=== PATIENT | female | born 1995 ===

== ENCOUNTER 2025-03-11 20:41 | Inpatient (IN) | payer OTHER ==
[~2025-03-11] VITALS: Ht 160 cm; Wt 55.0 kg
[2025-03-11] MEDS ORDERED: FentaNYL Citrate 50 MCG/ML 2 ML Injection IV PRN (21:00)
[2025-03-11 21:17] LABS: BASOPHILS ABSOLUTE AUTO 0.04 K/mm3 (0.00-0.23); BASOPHILS PERCENT AUTO 0 % (0-2); EOSINOPHILS ABSOLUTE AUTO 0.01 K/mm3 (0.00-0.68); EOSINOPHILS PERCENT AUTO 0 % (0-6); Hematocrit 38.0 % (33.0-51.0); Hemoglobin 12.3 g/dL (11.5-16.0); IMMATURE GRAN ABSOLUTE AUTO 0.10 K/mm3 (0.00-0.10); IMMATURE GRAN PERCENT AUTO 1 % (0-1); LYMPHOCYTES ABSOLUTE AUTO 1.07 K/mm3 (0.84-5.20); LYMPHOCYTES PERCENT AUTO 5 % (21-46); MONOCYTES ABSOLUTE AUTO 1.23 K/mm3 (0.16-1.47); MONOCYTES PERCENT AUTO 6 % (4-13); Mean Corpuscular HGB Conc 32.4 g/dL (31.5-36.5); Mean Corpuscular Volume 83 fL (80-100); NEUTROPHILS ABSOLUTE AUTO 17.97 K/mm3 (1.96-9.15); NEUTROPHILS PERCENT AUTO 88 % (41-73); NRBC ABSOLUTE 0.00 K/mm3 (0.00-0.02); NRBC Auto 0.0 /100 WBC (0.0-0.2); RDW Coefficient Variation 14.2 % (11.7-14.2); RDW Standard Deviation 42.8 fL (35.1-46.3)
[2025-03-11 21:41] LABS: Source, Urine Clean Catch
[2025-03-11 21:47] LABS: Platelet Count 290 K/mm3 (150-400)
[2025-03-11 22:03] LABS: Bilirubin, Urine Neg (Neg); Glucose Qualitative, Urine Neg (Neg); Ketones, Urine Neg (Neg); Leukocyte Esterase, Urine Neg (Neg); Protein, Urine 1+ (Neg); Specific Gravity, Urine 1.010 (1.003-1.022); Urobilinogen, Urine NORM (Normal)
[2025-03-11 22:12] LABS: Color, Urine Yellow (P-Yellow)
[2025-03-11 22:13] LABS: Red Blood Cells, Urine 0-2 /hpf (0-2); White Blood Cells, Urine 0-2 /hpf (0-5)
[2025-03-11 22:15] LABS: Alanine Aminotransfer (ALT/SGP 26 U/L (12-78); Albumin, Blood 3.7 g/dL (3.4-5.0); Albumin/Globulin Ratio 1.1 (0.8-1.8); Anion Gap 10 mmol/L (3-11); Aspartate Aminotrans (AST/SGOT 30 U/L (12-37); Bilirubin, Total 0.2 mg/dL (0.1-1.0); Blood Urea Nitrogen 12 mg/dL (8-24); CO2, Blood 22 mmol/L (21-32); Calcium, Blood 8.9 mg/dL (8.5-10.1); Chloride, Blood 107 mmol/L (98-108); Creatinine, Blood 0.55 mg/dL (0.40-1.00); Ethanol (Alcohol), Blood, Med <3 mg/dL; Globulin, Blood 3.4 g/dL (2.2-4.0); Glucose, Blood 105 mg/dL (70-99); Potassium, Blood 4.4 mmol/L (3.5-5.5); Sodium, Blood 135 mmol/L (136-145); Total Protein, Blood 7.1 g/dL (6.4-8.2)
[2025-03-11] MEDS ORDERED: NS 1,000 ML IV SCH (22:25)
[2025-03-11] MEDS ORDERED: Ondansetron HCl 2 MG / ML 2ML Vial IV ONE (23:00)
[2025-03-11 23:38] VITALS: BP 109/69
[2025-03-12] MEDS ORDERED: IRON18 M1 PO (00:05)
[2025-03-12] MEDS ORDERED: Ondansetron HCl 2 MG / ML 2ML Vial IV PRN (00:50)
[2025-03-12] MEDS ORDERED: HYDROcodone 5-APAP 325 TAB PO PRN (00:50)
[2025-03-12] MEDS ORDERED: FentaNYL Citrate 50 MCG/ML 2 ML Injection IV PRN (00:50)
[2025-03-12 02:12] LABS: Hematocrit 34.9 % (33.0-51.0); Hemoglobin 11.4 g/dL (11.5-16.0)
--- NOTE | 2025-03-12 02:58 | NUR ---
PT CONTINUES TO C/O PAIN AT ABDOMEN. RN AND RETAIL MARKETING MANAGER HAVE DISCUSSED PAIN AND SYMPTOMS TO BE EXPECTED. HEATING PAD PROVIDED.
[2025-03-12 04:11] VITALS: BP 102/55
--- NOTE | 2025-03-12 04:11 | NUR ---
RN TO ROOM; PT WITH CONTINUED C/O PAIN. RN PALPATED PT ABDOMEN AND IT REMAINS TENDER BUT NO INCREASED FIRMNESS. HEATING PAD PLACED BACK ON ABDOMEN PER PT REQUEST.
--- NOTE | 2025-03-12 04:44 | NUR ---
CONTINOUS PULSE OX PLACED ON PT PER PROTOCOL
[2025-03-12] MEDS ORDERED: Ketorolac Tromethamine 15mg Vial IV ONE (05:10)
--- NOTE | 2025-03-12 05:12 | NUR ---
0505 PT REQUESTS MORE PAIN MEDICATIONS AND SLEEP MEDICATION. RN CALL TO DR MULLINS. RN RELAYED TO DR MULLINS PT REQUEST AND THAT PATIENT DOES FALL ASLEEP WHILE GETTING FENTANYL AND FOR A BRIEF TIME AFTERWARD. PROVIDER ORDERS GIVEN FOR IV TORADOL X1 AND ADDITIONAL LAB WORK. NO ORDERS FOR SLEEP MEDICATION AT THIS TIME.
[2025-03-12 06:48] LABS: BASOPHILS ABSOLUTE AUTO 0.02 K/mm3 (0.00-0.23); BASOPHILS PERCENT AUTO 0 % (0-2); EOSINOPHILS ABSOLUTE AUTO 0.00 K/mm3 (0.00-0.68); EOSINOPHILS PERCENT AUTO 0 % (0-6); Hematocrit 32.9 % (33.0-51.0); Hemoglobin 10.5 g/dL (11.5-16.0); IMMATURE GRAN ABSOLUTE AUTO 0.05 K/mm3 (0.00-0.10); IMMATURE GRAN PERCENT AUTO 0 % (0-1); LYMPHOCYTES ABSOLUTE AUTO 1.04 K/mm3 (0.84-5.20); LYMPHOCYTES PERCENT AUTO 8 % (21-46); MONOCYTES ABSOLUTE AUTO 0.95 K/mm3 (0.16-1.47); MONOCYTES PERCENT AUTO 7 % (4-13); Mean Corpuscular HGB Conc 31.9 g/dL (31.5-36.5); Mean Corpuscular Volume 84 fL (80-100); NEUTROPHILS ABSOLUTE AUTO 11.15 K/mm3 (1.96-9.15); NEUTROPHILS PERCENT AUTO 84 % (41-73); NRBC ABSOLUTE 0.00 K/mm3 (0.00-0.02); NRBC Auto 0.0 /100 WBC (0.0-0.2); Platelet Count 283 K/mm3 (150-400); RDW Coefficient Variation 14.2 % (11.7-14.2); RDW Standard Deviation 43.8 fL (35.1-46.3)
[2025-03-12 07:14] LABS: Anion Gap 10.0 mmol/L (3-11); Blood Urea Nitrogen 12.0 mg/dL (8-24); CO2, Blood 24.0 mmol/L (21-32); Calcium, Blood 8.3 mg/dL (8.5-10.1); Chloride, Blood 105.0 mmol/L (98-108); Creatinine, Blood 0.52 mg/dL (0.40-1.00); Glucose, Blood 127.0 mg/dL (70-99); Potassium, Blood 3.9 mmol/L (3.5-5.5); Sodium, Blood 135.0 mmol/L (136-145)
[2025-03-12 07:17] VITALS: BP 100/53
--- NOTE | 2025-03-12 07:27 | NUR ---
SHIFT SUMMARY PT WITH SEVERE PAIN DURING SHIFT; PROVIDER NOTIFIED (SEE NOTES). PT FRIEND TOOK WALLET AND PASSPORT HOME WITH HER. PT REPORTS RELIEF WITH TORADOL. PT REFUSED LFA DRESSING AND BLANKET EXCHANGE SHE WANTED TO REST.
--- NOTE | 2025-03-12 08:00 | NUR ---
03/11/25 2335 PT ARRIVES TO FLOOR FROM ED VIA GURNEY; PT UNABLE TO STAND AT THIS TIME DUE TO PAIN. PT TRANSFERRED TO BED WITH SLIDE SHEET AND STAFF ASSISTANCE. PT FRIEND AT BEDSIDE AND BOTH ORIENTED TO ROOM.
[2025-03-12] MEDS ORDERED: HYDROmorphone HCl/Pf 1MG SYR IV PRN (09:30)
[2025-03-12] MEDS ORDERED: Naloxone HCl 1MG / ML 2ML SYR IV PRN (11:35)
[2025-03-12 12:44] LABS: Hematocrit 32.7 % (33.0-51.0); Hemoglobin 10.7 g/dL (11.5-16.0)
[2025-03-12 12:56] VITALS: BP 109/59
[2025-03-12 15:05] VITALS: BP 115/61
--- NOTE | 2025-03-12 16:13 | NUR ---
NOTIFIED DR. MULLINS OF BLADDER SCAN OF 104 AFTER PT HAS NOT VOIDED DURING SHIFT. ORDERS RECIEVED FOR 500ML BOLUS. ENCOURAGING PATIENT TO CONTINUE DRINKING FLUIDS.
--- NOTE | 2025-03-12 16:20 | NUR ---
spoke with dr. stinson again, no bolus to be given at this time.
--- NOTE | 2025-03-12 16:48 | NUR ---
SHIFT SUMMARY PT REMAINS VERY PAINFUL THROUGHOUT SHIFT. TOLERATING LIQUIDS WELL. NO APPETITE. ENCOURAGED PATIENT TO USE INCENTIVE SPIROMETER, SHE WILL USE WHEN REMINDED. ENCOURAGING PATIENT TO AMBULATE AND PT DECLINES TO GET OOB AT THIS TIME. HGB REMAINS STABLE DURING SHIFT. PLAN FOR REPEAT CHECK AROUND 1800. FRIENDS AT BEDSIDE T/O SHIFT. PT CALLING APPROPRIATLY. FALLS ASLEEP QUICKLY.
[2025-03-12 19:06] LABS: Hematocrit 34.4 % (33.0-51.0); Hemoglobin 11.0 g/dL (11.5-16.0)
[2025-03-12 19:14] VITALS: BP 125/65
[2025-03-12 23:38] VITALS: BP 110/68
[2025-03-13 00:15] LABS: Hematocrit 32.5 % (33.0-51.0); Hemoglobin 10.4 g/dL (11.5-16.0)
[2025-03-13 03:47] VITALS: BP 125/70
--- NOTE | 2025-03-13 05:42 | NUR ---
NOC SUMMARY- PT PAIN MANAGED. PT HAS UNREALISTIC EXPECTATIONS WITH PAIN MANAGEMENT. PT IS REPORTING CONSTIPATION DISCOMFORT. WILL DISCUSS WITH DAY RN ABOUT ASKING FOR BOWEL CARE. PT HAS BEEN TAKING IN VERY LITTLE PO FLUIDS. PT DID AMBULATE TO RESTROOM TO VOID. PT DENIES PASSING FLATUS. PT ENCOURAGED TO WALK. CALL LIGHT IN REACH.
[2025-03-13 06:40] LABS: BASOPHILS ABSOLUTE AUTO 0.05 K/mm3 (0.00-0.23); BASOPHILS PERCENT AUTO 0 % (0-2); Hematocrit 36.4 % (33.0-51.0); Hemoglobin 11.8 g/dL (11.5-16.0); LYMPHOCYTES ABSOLUTE AUTO 0.68 K/mm3 (0.84-5.20); LYMPHOCYTES PERCENT AUTO 5 % (21-46); MONOCYTES ABSOLUTE AUTO 0.79 K/mm3 (0.16-1.47); MONOCYTES PERCENT AUTO 5 % (4-13); Mean Corpuscular HGB Conc 32.4 g/dL (31.5-36.5); Mean Corpuscular Volume 84 fL (80-100); NRBC ABSOLUTE 0.00 K/mm3 (0.00-0.02); NRBC Auto 0.0 /100 WBC (0.0-0.2); Platelet Count 285 K/mm3 (150-400); RDW Coefficient Variation 14.0 % (11.7-14.2); RDW Standard Deviation 43.3 fL (35.1-46.3)
[2025-03-13 06:41] LABS: EOSINOPHILS ABSOLUTE AUTO 0.01 K/mm3 (0.00-0.68); EOSINOPHILS PERCENT AUTO 0 % (0-6); IMMATURE GRAN ABSOLUTE AUTO 0.05 K/mm3 (0.00-0.10); IMMATURE GRAN PERCENT AUTO 0 % (0-1); NEUTROPHILS ABSOLUTE AUTO 13.08 K/mm3 (1.96-9.15); NEUTROPHILS PERCENT AUTO 89 % (41-73)
[2025-03-13 06:57] LABS: Anion Gap 10.0 mmol/L (3-11); Blood Urea Nitrogen 12.0 mg/dL (8-24); CO2, Blood 26.0 mmol/L (21-32); Calcium, Blood 8.0 mg/dL (8.5-10.1); Chloride, Blood 98.0 mmol/L (98-108); Creatinine, Blood 0.56 mg/dL (0.40-1.00); Glucose, Blood 109.0 mg/dL (70-99); Potassium, Blood 4.1 mmol/L (3.5-5.5); Sodium, Blood 130.0 mmol/L (136-145)
[2025-03-13] MEDS ORDERED: Magnesium Hydroxide Conc 10 ML UDC PO PRN (07:05)
[2025-03-13 07:08] LABS: BAND PERCENT MAN 27 % (0-8); BASOPHILS ABSOLUTE MAN 0.00 K/mm3 (0.00-0.23); BASOPHILS PERCENT MAN 0 % (0-2); EOSINOPHILS ABSOLUTE MAN 0.00 K/mm3 (0.00-0.68); EOSINOPHILS PERCENT MAN 0 % (0-6); LYMPHOCYTES ABSOLUTE MAN 0.58 K/mm3 (0.84-5.20); LYMPHOCYTES PERCENT MAN 4 % (21-46); MONOCYTES ABSOLUTE MAN 0.87 K/mm3 (0.16-1.47); MONOCYTES PERCENT MAN 6 % (4-13); NEUTROPHILS ABSOLUTE MAN 13.19 K/mm3 (1.96-9.15); SEG NEUTROPHILS PERCENT MAN 63 % (41-73)
[2025-03-13 07:35] VITALS: BP 122/87
[2025-03-13] MEDS ORDERED: HYDROmorphone HCl/Pf 1MG SYR IV PRN (10:40)
[2025-03-13] MEDS ORDERED: Metoclopramide HCl 5MG / ML 2ML Vial IV PRN (10:40)
[2025-03-13 15:30] VITALS: BP 117/79
--- NOTE | 2025-03-13 18:33 | NUR ---
SHIFT SUMMARY: PT APPEARS TO SLEEP OFTEN, ORIENTED x4, ABLE TO MAKE NEEDS KNOWN, FREQUENTLY REQUESTING PAIN MEDICATION. PT ENCOURAGED TO GET OOB AND INCREASE ACTIVITY LEVEL TODAY, BUT REFUSES TO SIT IN CHAIR, REFUSES BEDBATH, DOES AMBULATE x2 TO RESTROOM TO URINATE, NO BM THIS SHIFT BUT BOWEL CARE REGIMEN WAS INITIATED PER ORDERS. ABDOMEN TENDER TO PALPATION. PT ENCOURAGED TO INCREASE PO INTAKE, MINIMAL INTAKE THIS SHIFT, EMESIS x1 THIS AM. PT's FRIENDS TO BEDSIDE TODAY, UPDATED ON PT STATUS. THEY ARE HOPING TO TAKE PT HOME TOMORROW, BUT PT IS NOT PARTICIPATING MUCH IN HER CARE WHICH IS CONCERNING. AT THIS TIME, PT IS RESTING QUIETLY IN BED W/CALL LIGHT IN REACH.
[2025-03-13 20:53] VITALS: BP 110/66
[2025-03-13 21:25] VITALS: BP 112/69
[2025-03-13 21:59] VITALS: BP 109/67
--- NOTE | 2025-03-13 22:46 | NUR ---
PTS VIEW SCORE HAS BEEN 4. PT HAS BEEN TACHY AND HAS LOW GRADE TEMP AND TACHYPNEA. SEE FOLLOW UP VS. PTS PRIMARY AND FRONT LOADER RESIDENTIAL DRIVER AWARE OF VS AND VERB OK TO TRANSITION PT BACK TO ROUTINE VS PER ORDERS.
[2025-03-14] VITALS (13 sets, daily range): BP systolic 112–129; BP diastolic 71–92
[2025-03-14 04:51] LABS: Hematocrit 34.2 % (33.0-51.0); Hemoglobin 10.9 g/dL (11.5-16.0); Mean Corpuscular HGB Conc 31.9 g/dL (31.5-36.5); Mean Corpuscular Volume 82 fL (80-100); NRBC ABSOLUTE 0.00 K/mm3 (0.00-0.02); NRBC Auto 0.0 /100 WBC (0.0-0.2); Platelet Count 263 K/mm3 (150-400); RDW Coefficient Variation 13.8 % (11.7-14.2); RDW Standard Deviation 41.2 fL (35.1-46.3)
[2025-03-14 05:17] LABS: BAND PERCENT MAN 24 % (0-8); BASOPHILS ABSOLUTE MAN 0.00 K/mm3 (0.00-0.23); BASOPHILS PERCENT MAN 0 % (0-2); EOSINOPHILS ABSOLUTE MAN 0.00 K/mm3 (0.00-0.68); EOSINOPHILS PERCENT MAN 0 % (0-6); LYMPHOCYTES ABSOLUTE MAN 0.42 K/mm3 (0.84-5.20); LYMPHOCYTES PERCENT MAN 3 % (21-46); MONOCYTES ABSOLUTE MAN 0.14 K/mm3 (0.16-1.47); MONOCYTES PERCENT MAN 1 % (4-13); NEUTROPHILS ABSOLUTE MAN 13.64 K/mm3 (1.96-9.15); SEG NEUTROPHILS PERCENT MAN 72 % (41-73)
[2025-03-14 05:26] LABS: Anion Gap 9.0 mmol/L (3-11); Blood Urea Nitrogen 9.0 mg/dL (8-24); CO2, Blood 24.0 mmol/L (21-32); Calcium, Blood 7.8 mg/dL (8.5-10.1); Chloride, Blood 97.0 mmol/L (98-108); Creatinine, Blood 0.45 mg/dL (0.40-1.00); Glucose, Blood 109.0 mg/dL (70-99); Potassium, Blood 4.0 mmol/L (3.5-5.5); Sodium, Blood 126.0 mmol/L (136-145)
--- NOTE | 2025-03-14 08:11 | NUR ---
PT ALERT AND ORIENTED X4. VITALS WNL. SPIKED A LOW GRAGE FEVER. HAS BEEN MEDICATED THROUGH THE NIGHT FOR RLQ PAIN. PT NEEDS ENCOURAGEMENT AND REFINFORCMENT TO AMBULATE AND USE IS. PT EDUCATED ON THE BENEFITS AND VERBALLY STATES UNDERSTANDING. PT HAD AN EPISODE OF INCONTINENCY. AMBULATED TO THE BATHROOM ONCE WITH NURSE ASSIST. CALL LOMELI WITHIN REACH.
[2025-03-14] MEDS ORDERED: Piperacillin/Tazobactam Sod 3.375 GM in NS 100 ML IV SCH (11:00)
--- NOTE | 2025-03-14 11:00 | NUR ---
PT TRANSPORTED TO PRE-OP VIA [facility]. FAMILY AT BEDSIDE.
[2025-03-14] MEDS ORDERED: FentaNYL Citrate 50 MCG/ML 5 ML Injection ONE (11:11)
[2025-03-14] MEDS ORDERED: Midazolam HCl 1MG / ML 2ML Vial ONE (11:11)
[2025-03-14] MEDS ORDERED: NS 500 ML IV SCH (11:15)
[2025-03-14] MEDS ORDERED: Ropivacaine 0.5% HCL/PF 5 MG/ML 30ML Vial ONE (12:29)
[2025-03-14] MEDS ORDERED: Bupivacaine 0.5% HCl 5 MG/ML 30MLVIAL ONE (12:44)
[2025-03-14] MEDS ORDERED: Rocuronium Bromide 10 MG/ML 5ML Injection IV ONE ×2 (13:01→14:10)
--- NOTE | 2025-03-14 13:24 | NUR ---
03/14/25 1324 Nathaniel Wiseman PATIENT RECIEVED RECTUS SHEATH AND A TAP BLACK PRIOR TO SURGERY IN OR BY DR. CARRIZALES.
[2025-03-14] MEDS ORDERED: Phenylephrine HCl 100 MCG/ML-NS 10MLSYR (1MG/10ML) ONE (14:10)
[2025-03-14] MEDS ORDERED: Sugammadex Sodium 200 MG/2ML SDV (100 MG/ML) ONE (15:39)
[2025-03-14] MEDS ORDERED: Ketorolac Tromethamine 30mg Vial ONE (15:42)
[2025-03-14] MEDS ORDERED: Ondansetron HCl 2 MG / ML 2ML Vial ONE (15:42)
[2025-03-14] MEDS ORDERED: Ondansetron HCl 2 MG / ML 2ML Vial IV PRN ×2 (16:10→16:20)
[2025-03-14] MEDS ORDERED: fentaNYL citrate 20 MCG/ML 30MLSYR IV PRN (16:15)
[2025-03-14] MEDS ORDERED: HydrALAZINE HCl 20 MG / ML 1ML Vial IV PRN (16:20)
[2025-03-14] MEDS ORDERED: FentaNYL Citrate 50 MCG/ML 2 ML Injection IV PRN ×2 (16:20)
[2025-03-14] MEDS ORDERED: HYDROmorphone HCl/Pf 1MG SYR IV PRN ×2 (16:20→16:25)
[2025-03-14] MEDS ORDERED: HYDROmorphone HCl/Pf 1MG SYR ONE (16:20)
[2025-03-14] MEDS ORDERED: ePHEDrine Sulfate 50 MG/ML 1ML Injection IV PRN (16:20)
--- NOTE | 2025-03-14 17:00 | NUR ---
ARRIVAL TO UNIT PT ARRIVED TO UNIT FROM PACU VIA GOURNEY. PT SLID TO BED. A&O x4. PT REPORTS INCREASED PAIN. PT STATES "CAN I HAVE PAIN MEDS. CAN YOU GIVE ME PAIN MEDS FASTER PLEASE." GEOMATICS PROFESSOR IN PROCESS OF BEING INITIATED. NG TUBE IN R NARE, CONNECTED TO LIS. NPO STATUS. MIDLINE JENNIFFER C/D/I. ZELAYA DRAINING YELLOW URINE TO GRAVITY. PT c FREQUENT QUESTIONS, CONSISTENTLY ASKING FOR "SIPS OF WATER" AND PAIN MEDICATION. ORIENTED TO ROOM, CALL LIGHT IN REACH.
--- NOTE | 2025-03-14 18:16 | NUR ---
DR MULLINS TO BEDSIDE DR PROVIDING POST-OP EDUCATION. FAMILY AT BEDSIDE
[2025-03-15 03:08] VITALS: BP 125/88
[2025-03-15 06:14] LABS: BASOPHILS ABSOLUTE AUTO 0.07 K/mm3 (0.00-0.23); BASOPHILS PERCENT AUTO 1 % (0-2); Hematocrit 33.1 % (33.0-51.0); Hemoglobin 10.6 g/dL (11.5-16.0); LYMPHOCYTES ABSOLUTE AUTO 0.44 K/mm3 (0.84-5.20); LYMPHOCYTES PERCENT AUTO 4 % (21-46); MONOCYTES ABSOLUTE AUTO 0.51 K/mm3 (0.16-1.47); MONOCYTES PERCENT AUTO 5 % (4-13); Mean Corpuscular HGB Conc 32.0 g/dL (31.5-36.5); Mean Corpuscular Volume 82 fL (80-100); NRBC ABSOLUTE 0.00 K/mm3 (0.00-0.02); NRBC Auto 0.0 /100 WBC (0.0-0.2); Platelet Count 314 K/mm3 (150-400); RDW Coefficient Variation 14.1 % (11.7-14.2); RDW Standard Deviation 42.1 fL (35.1-46.3)
[2025-03-15 06:17] LABS: EOSINOPHILS ABSOLUTE AUTO 0.04 K/mm3 (0.00-0.68); EOSINOPHILS PERCENT AUTO 0 % (0-6); IMMATURE GRAN ABSOLUTE AUTO 0.05 K/mm3 (0.00-0.10); IMMATURE GRAN PERCENT AUTO 1 % (0-1); NEUTROPHILS ABSOLUTE AUTO 9.05 K/mm3 (1.96-9.15); NEUTROPHILS PERCENT AUTO 89 % (41-73)
[2025-03-15 06:36] LABS: Anion Gap 8.0 mmol/L (3-11); Blood Urea Nitrogen 11.0 mg/dL (8-24); CO2, Blood 27.0 mmol/L (21-32); Calcium, Blood 7.6 mg/dL (8.5-10.1); Chloride, Blood 101.0 mmol/L (98-108); Creatinine, Blood 0.48 mg/dL (0.40-1.00); Glucose, Blood 111.0 mg/dL (70-99); Potassium, Blood 3.8 mmol/L (3.5-5.5); Sodium, Blood 132.0 mmol/L (136-145)
[2025-03-15 07:05] VITALS: BP 121/82
[2025-03-15] MEDS ORDERED: Ketorolac Tromethamine 15mg Vial IV PRN (15:55)
--- NOTE | 2025-03-15 19:20 | NUR ---
SUMMARY: PT IS POD1 SMALL BOWEL RESECTION. A/O, VSS. SURGICAL SITE WNL. PAIN MANAGED WITH ELECTRONIC GAMING DEVICE SUPERVISOR, SEE EMAR. NGT TO LIS, SMALL OUTPUT TODAY, PT DRINKING SMALL SIPS OF WATER. NO N/V. PT UP TO CHAIR AND HAD A BEDBATH TONIGHT, TOLERATED WELL. ENCOURAGING MOBILITY. BINDER IN PLACE. NO ACUTE CONCERNS, PT FAMILY AT BEDSIDE
[2025-03-15 19:45] VITALS: BP 131/85
[2025-03-15] MEDS ORDERED: DEXTROMETHORPHAN/BENZOCAINE 1 EACH LOZENGE MT PRN (21:00)
[2025-03-16 03:57] VITALS: BP 119/79
--- NOTE | 2025-03-16 04:16 | NUR ---
SHIFT SUMMARY NO ACUTE CHANGES T/O SHIFT. PAIN MANAGED PER DERRICKMAN HELPER, INFUSING PER ORDERS. TURNED TOLERATED. MIDLINE JENNIFFER CDI. DECLINED GETTING OOB DURING NIGHT, BUT REPORTS BEING UP IN CHAIR DURING DAY. NG IN PLACE, GREEN LIQUID NOTED IN CANISTER. SP02 AT 99% ON RA. IVF AND ABX INFUSING PER ORDERS. PLAN TO ENCOURAGE OOB DURING DAYS. FAMILY VERY ATTENTIVE AT BEDSIDE. WILL GIVE REPORT TO ON ONCOMING RN. PT RESP EVEN/UNLABORED, VSS, CALL LIGHT AND PAIN WITHIN NORMAL. WILL GIVE REPORT TO ONCOMING RN. PLAN TO WORK WITH THERAPY.
[2025-03-16 06:21] LABS: Anion Gap 9.0 mmol/L (3-11); Blood Urea Nitrogen 15.0 mg/dL (8-24); CO2, Blood 27.0 mmol/L (21-32); Calcium, Blood 7.6 mg/dL (8.5-10.1); Chloride, Blood 101.0 mmol/L (98-108); Creatinine, Blood 0.47 mg/dL (0.40-1.00); Glucose, Blood 89.0 mg/dL (70-99); Potassium, Blood 3.5 mmol/L (3.5-5.5); Sodium, Blood 133.0 mmol/L (136-145)
[2025-03-16 07:16] VITALS: BP 125/81
--- NOTE | 2025-03-16 07:40 | NUR ---
NGT CLAMPED AT THIS TIME PER ORDERS.
[2025-03-16] MEDS ORDERED: Enoxaparin 40 MG/0.4 ML SYR SC SCH (09:00)
[2025-03-16 12:18] VITALS: BP 137/85
[2025-03-16 14:26] VITALS: BP 116/72
--- NOTE | 2025-03-16 16:11 | NUR ---
SHIFT SUMMARY PT STILL COMPLAINING OF 10/10 ABD PAIN DESPITE CATERING COORDINATOR USE AND IV TORADOL. APPEARS COMFORTABLE AT REST THOUGH. DECLINING KPAD, ABD BINDER IN PLACE. PT REQUIRES FREQUENT ENCOURAGEMENT TO MOBILIZE. OUT OF BED TO CHAIR AND BSC WITH 1 SBA. NGT CLAMPED THIS MORNING. MINIMAL SIPS OF CLEAR LIQS. DENIES FLATUS. BTS X4 QUAD ARE HYPOACTIVE. MIDLINE JENNIFFER DRESSING TO ABD REMAINS UNCHANGED WITH SMALL SPOTS OF OLD SHADOWING AT THE BOTTOM. MULTIPLE FAMILY/FRIENDS IN T/O DAY FOR SUPPORT. PT CAN BE ANXIOUS AT TIMES AND REQUIRES REASSURANCE PRN. CALL LIGHT WITHIN REACH.
[2025-03-16 18:48] VITALS: BP 127/78
[2025-03-17 04:14] VITALS: BP 124/79
--- NOTE | 2025-03-17 04:39 | NUR ---
SHIFT SUMMARY PRINCESS WAS LETHARGIC BUT FULLY ORIENTED ON ASSESSMENT. PT NOT MOTIVATED TO PARTICIPATE IN ANY CARE. PT VOMITED 200ML LIQUID AT START OF SHIFT, CONTACTED, SUCTION RESUMED THROUGH NG TUBE WITH LARGE VOLUME OUT, PT DRINKING QUITE A BIT OF LIQUID TONIGHT. PT DID START PASSING GAS, AND HAD SMALL LIQUID BM. SCANT VAGINAL BLEEDING NOTED. CONCERNS FOR LOW ENERGY AND WEAKNESS. PT REQUESTED TO HAVE ABD BINDER OFF FOR PART OF SHIFT. PT ABLE TO STAND AND TRANSFER TO BSC. PT SKIN TEMP FELT WARM, ORAL TEMP NORMAL RANGE. NO OTHER EVENTS NOTED. PT RESTING WITH CALL LIGHT IN REACH, FREQUENT CALLS FOR ASSISTANCE.
[2025-03-17 07:27] VITALS: BP 138/81
--- NOTE | 2025-03-17 08:41 | NUR ---
PT THREW UP APPROX 300 ML OF LIQUID BROWN EMESIS. FOUL SMELLING. NGT REMAINED PATENT AND SUCTIONING WITH 900 ML IN CANISTER. REPLACED TUBING AND CHECKED PATENCY. REMAINS SUCTIONED AND TUBING HAS NOT PULLED OUT FROM MARKED POSITION AT THIS TIME.
[2025-03-17 15:16] VITALS: BP 135/75
--- NOTE | 2025-03-17 16:13 | NUR ---
SHIFT SUMMARY NGT CLAMPED AT APPROX 1530 TODAY. PT REPORTING HUNGER PAINS. IS PASSING GAS AND HAD 2 LIQ BROWN BMS. SBA TO BSC. SIPS OF CLEARS OFFERED AND PT SLOWLY TOLERATING SO FAR WITH NO N/V. JENNIFFER DRESSING TO MIDLINE ABD REMAINS UNCHANGED FROM THIS MORNING WITH 2 MODERATE SPOTS OF SHADOWING. PT USING MANAGER ENTERPRISE + TORADOL FOR PAIN CONTROL. PT UP TO CHAIR TWICE TODAY AND AMBULATED APPROX 50 FEET IN THE HALLWAY WITH SBA. PT NEEDS FREQUENT ENCOURAGEMENT TO MOBILIZE. PT AND FAMILY EDUCATED FREQUENTLY ON TREATMENT PLAN. CALL LIGHT WITHIN REACH.
[2025-03-17 19:27] VITALS: BP 138/88
--- NOTE | 2025-03-18 04:59 | NUR ---
SHIFT SUMMARY AOX4. ANSWERS QUESTIONS APPROPRIATE. SOFT SPOKEN & MUMBLES. POD 4-EX LAP W/BOWEL RESECTION. MIDLINE JENNIFFER W/2 QUARTER SIZE SHADOWING NOTED- HASNT CHANGED T/O NIGHT. PT REPORTS 8/10 "PAINING" TO ABD, STATES SHE EVEN HURTS 8/10 AFTER USING FENTANYL SHELL COREMAKER. PAIN GOAL 0/10, EDUCATED PT ON HOW SHE WILL HAVE SOME PAIN & UNABLE TO TAKE AWAY ALL PAIN. PT ABLE TO SLEEP & REST SOUNDLY W/EYES SHUT. REPORTS PASSING FLATUS @BEGINNING OF SHIFT. HAD 1 SM LIQUID BM THIS SHIFT. STATES PAIN IS BETTER WHEN SHE PASSES GAS, OTHERWISE SHE FEELS "ALOT OF PRESSURE". ENCOURAGED AMBULATION IN HALLS TO HELP W/GAS PAIN & PT REFUSED. NGT TO R NARES HAS BEEN CLAMPED SINCE 152903/17/25, PT HAS DENIED ANY N/V T/O NIGHT. HAS TOLERATED MINIMAL SIPS WATER, HOWEVER ASKS STAFF TO HELP HER DRINK WATER. ENCOURAGED PT TO GRAB HER OWN WATER TO DRINK SINCE HANDS ARE NOT AFFECTED & PT STATED SHE CANT USE THEM R/T CONT PULSE OX MONITOR IN PLACE, INFORMED PT UNDERSTANDING OF AWKWARDNESS BUT SHE WOULD STILL BE ABLE TO HOLD A GLASS WITH EQUIPMENT IN PLACE. PT HAD INCONT VOID & SATURATED THE BED, PT STATED SHE WAS SO SLEEPY SHE SLEPT RIGHT THROUGH VOIDING. VSS. CALL LIGHT IN REACH & PT USES FREQUENTLY TO HAVE STAFF ASSIST W/BASIC NEEDS SUCH RAISING HOB, MOVING PILLOW, ADJUSTING BLANKET-EDUCATED PT THE IMPORTANCE TO TRY TO PERFORM SOME OF THESE BASIC TASKS HERSELF TO KEEP FROM DECONDITIONING & WORSENING WEAKNESS.
[2025-03-18 05:00] LABS: Hematocrit 25.7 % (33.0-51.0); Hemoglobin 8.2 g/dL (11.5-16.0); Mean Corpuscular HGB Conc 31.9 g/dL (31.5-36.5); Mean Corpuscular Volume 82 fL (80-100); NRBC ABSOLUTE 0.02 K/mm3 (0.00-0.02); NRBC Auto 0.2 /100 WBC (0.0-0.2); Platelet Count 358 K/mm3 (150-400); RDW Coefficient Variation 14.6 % (11.7-14.2); RDW Standard Deviation 43.6 fL (35.1-46.3)
[2025-03-18 05:15] VITALS: BP 125/78
[2025-03-18 05:21] LABS: Anion Gap 11.0 mmol/L (3-11); BAND PERCENT MAN 16 % (0-8); BASOPHILS ABSOLUTE MAN 0.00 K/mm3 (0.00-0.23); BASOPHILS PERCENT MAN 0 % (0-2); Blood Urea Nitrogen 9.0 mg/dL (8-24); CO2, Blood 24.0 mmol/L (21-32); Calcium, Blood 7.6 mg/dL (8.5-10.1); Chloride, Blood 100.0 mmol/L (98-108); Creatinine, Blood 0.43 mg/dL (0.40-1.00); EOSINOPHILS ABSOLUTE MAN 0.00 K/mm3 (0.00-0.68); EOSINOPHILS PERCENT MAN 0 % (0-6); Glucose, Blood 73.0 mg/dL (70-99); LYMPHOCYTES % ATYPICAL MANUAL 2 % (0-0); LYMPHOCYTES ABSOLUTE MAN 0.95 K/mm3 (0.84-5.20); LYMPHOCYTES PERCENT MAN 8 % (21-46); MONOCYTES ABSOLUTE MAN 0.47 K/mm3 (0.16-1.47); MONOCYTES PERCENT MAN 5 % (4-13); MYELOCYTE ABSOLUTE MAN 0.09 K/mm3 (0.00-0.00); MYELOCYTE PERCENT MAN 1 % (0-0); NEUTROPHILS ABSOLUTE MAN 7.98 K/mm3 (1.96-9.15); Potassium, Blood 2.9 mmol/L (3.5-5.5); SEG NEUTROPHILS PERCENT MAN 68 % (41-73); Sodium, Blood 132.0 mmol/L (136-145)
--- NOTE | 2025-03-18 05:49 | NUR ---
PHYSICIAN COMMUNICATION PT REQUESTING INCREASE IN FENTANYL TRAM OPERATOR, STATES PAIN LEVEL IS UNBEARABLE. ENCOURAGED AMBULATION PT REFUSED. PT BELCHING, PT ASKS ME TO HAND HER DRINK TO HER FROM TABLE. INFORMED PT I WOULD INFORM MD OF REQUEST. DISCUSSED W/DR SOLIZ AM K RESULTS OF 2.9 & PTS REQUEST. HEYDI ORDERED LIQUID POTASSIUM REPLACEMENT & STATED HE WILL HOLD OFF ON INCREASE IN FENTANYL @THIS TIME.
[2025-03-18 07:23] VITALS: BP 119/84
[2025-03-18 08:18] LABS: Magnesium, Blood 1.8 mg/dL (1.6-2.4); Phosphorus, Blood 3.0 mg/dL (2.5-4.9)
--- NOTE | 2025-03-18 08:23 | NUR ---
DR SOLIZ IN TO SEE PT. REMOVED JENNIFFER.
--- NOTE | 2025-03-18 11:12 | NUR ---
THIS MANAGER OF PROGRAM GOT PATIENT UP TO CHAIR AT 9:30 AM.THIS MANAGER OF PROGRAM WALKED PATIENT IN BATHROOM AND ASSISTED WITH SHOWER AND DRESSING AND BEDDING CHANGE.WALKED IN PATIENT IN ROOM TO START DUE TO PAIN.PATIENT BACK TO CHAIR AND HAS BE ABLE TO STAY IN CHAIR FOR THE TIME BEING.RN NOTIFIED.
--- NOTE | 2025-03-18 13:19 | NUR ---
pt appears to be having some vaginal bleeding pt reported last menses ended on 03/07/25. notified dr feliz. no new orders at this time.
[2025-03-18 14:43] LABS: Anion Gap 10.0 mmol/L (3-11); Blood Urea Nitrogen 7.0 mg/dL (8-24); CO2, Blood 23.0 mmol/L (21-32); Calcium, Blood 7.8 mg/dL (8.5-10.1); Chloride, Blood 101.0 mmol/L (98-108); Creatinine, Blood 0.35 mg/dL (0.40-1.00); Glucose, Blood 90.0 mg/dL (70-99); Potassium, Blood 3.6 mmol/L (3.5-5.5); Sodium, Blood 130.0 mmol/L (136-145)
[2025-03-18 15:29] VITALS: BP 129/82
--- NOTE | 2025-03-18 17:01 | NUR ---
SUMMARY DR SOLIZ REMOVED JENNIFFER DRESSING THIS AM. PT SHOWERED AND SAT UP IN RECLINER. MEDIPORE DRESSING PLACED TO ABDOMINAL INCISION. THIS AFTERNOON, PT AMBULATED SHORT DISTANCE IN [place]. C/O OF INCREASED ABDOMINAL PAIN, MEDICATED PER ORDERS W/TORADOL AND PT REPORT SLIGHT IMPROVEMENT IN PAIN. USING WIRE COATER FOR PAIN CONTROL. NG TUBE HAS BEEN CLAMPED T/O SHIFT EXCEPT TO ADMINISTER POTASSIUM PER ORDERS. PT HAS DENIED NAUSEA T/O DAY. TAKING SMALL SIPS OF CLEARS. REQUESTED SOUP, ORANGE JUICE AND PINEAPPLE JUICE T/O DAY. EDUCATED PT ON CLEAR LIQUID DIET. PT HAVING LOOSE BMS. APPEARS TO HAVE STARTED MENSES. RESTING IN BED AT THIS TIME. CALL LIGHT AND WIRE COATER IN REACH. PT NEEDS ENCOURAGEMENT TO PERFORM TASKS FOR SELF. MULTIPLE FAMILY MEMBERS HAVE BEEN IN AND OUT OF ROOM MOST OF DAY.
[2025-03-18 19:25] VITALS: BP 129/88
[2025-03-19 03:44] VITALS: BP 123/82
--- NOTE | 2025-03-19 04:50 | NUR ---
SHIFT SUMMARY AOX4. VSS. NGT TO R NARES CLAMPED SINCE 03/17. POD 5-BOWEL RESECTION. MIDLINE MEDIPORE IN PLACE W/MOD SEROSANGUINOUS SHADOWING NOTED TO DRESSING. HAS DENIED N/V T/O NIGHT, BOB CLEAR LIQUIDS. NO BM THIS SHIFT & DENIES PASSING GAS. HAS TRIED TO HAVE 2 BM TONIGHT W/NO SUCCESS, PT DID HAVE 3 BM YESTERDAY AM PER REPORT. PT VERY UNMOTIVATED TO HELPING HERSELF ASKS STAFF TO HOLD HER WATER BOTTLE, PUSH BUTTONS TO RAISE HOB, REFUSES AMBULATING. STATES ABD VERY PAINFUL 04/12, DAY HABILITATION SUPERVISOR BEING USED FOR PAIN RELIEF & IV TORADOL. HAD 2 INCONT VOIDS IN BED & MULT OTHER VOIDS. SM AMOUNT SANGUINOUS DRAINAGE NOTED ON CLARY PAD. CALL LIGHT IN REACH & PT ABLE TO MAKE NEEDS KNOWN.
[2025-03-19 06:07] LABS: Albumin, Blood 1.8 g/dL (3.4-5.0); Anion Gap 9 mmol/L (3-11); Blood Urea Nitrogen 4 mg/dL (8-24); CO2, Blood 24 mmol/L (21-32); Calcium, Blood 7.6 mg/dL (8.5-10.1); Chloride, Blood 101 mmol/L (98-108); Creatinine, Blood 0.36 mg/dL (0.40-1.00); Glucose, Blood 92 mg/dL (70-99); Phosphorus, Blood 3.3 mg/dL (2.5-4.9); Potassium, Blood 3.2 mmol/L (3.5-5.5); Sodium, Blood 131 mmol/L (136-145)
[2025-03-19 07:12] VITALS: BP 123/82
--- NOTE | 2025-03-19 08:04 | NUR ---
PT RELUCTANT TO GET OOB. HAD PT GET UP TO RECLINER. EDUCATED PT ON RISK FOR DEVELOPING PNEUMONIA WITH LYING IN BED. ENCOURAGED IS USE. PT SITTING UP IN RECLINER WITH MEDICAL LAB TECHNICIAN AND CALL LIGHT IN REACH.
--- NOTE | 2025-03-19 11:20 | NUR ---
PT'S NGT DC'D AT APPROXIMATELY 0930 PER ORDERS. PT TOLERATED WELL.
[2025-03-19 15:34] VITALS: BP 118/80
--- NOTE | 2025-03-19 16:16 | NUR ---
PT HAS ORAL TEMP OF 100.7 BLANKETS REMOVED. DISCUSSED IS USE AGAIN. PT STATED WOULD USE AGAIN AT 1700. PROVIDED ORANGE JUICE.
--- NOTE | 2025-03-19 16:56 | NUR ---
SUMMARY PT HAS HAD TEMP T/O DAY. INSISTED PT GOT UP AND SAT IN RECLINER THIS AM. ENCOURAGED IS USE. DR SOLIZ ALSO REINFORCED NEED TO BE OOB AND USE IS REGULARLY. NGT DC'D PER ORDERS THIS AM. PT HAS TOLERATED SMALL AMOUNTS OF CLEAR LIQUIDS. WANTED TO ADVANCE DIET; EDUCATED ON NEED TO ADVANCE PO INTAKE SLOWLY. OBTAINED ORDER THAT PT MAY HAVE ORANGE JUICE WELL CLEARS. PT AMBULATED IN [place] TWICE. HAVING BMS. MEDIPORE DRESSING CHANGED THIS AM BY DR SOLIZ. FAMILY WAS IN ROOM MOST OF SHIFT. PT NEEDS A LOT OF ENCOURAGEMENT TO PERFORM TASKS INDEPENDENTLY TO MAINTAIN AND IMPROVE STRENGTH. PT TRIED ABDOMINAL BINDER FOR COMFORT BUT PT DID NOT CARE FOR SO WAS REMOVED. RESTING IN BED AT THIS TIME. CALL LIGHT AND DOORMAKER IN REACH.
[2025-03-19 19:48] VITALS: BP 123/78
--- NOTE | 2025-03-20 05:04 | NUR ---
SUMMARY, PT IMPROVING IN MOTIVATION TONIGHT,AMBULATES FOR BRP AND IN HALLS WITH MINIMAL SBA.TOLERATING CLR LIQ.
[2025-03-20 05:52] LABS: Hematocrit 27.1 % (33.0-51.0); Hemoglobin 8.9 g/dL (11.5-16.0); Mean Corpuscular HGB Conc 32.8 g/dL (31.5-36.5); Mean Corpuscular Volume 81 fL (80-100); NRBC ABSOLUTE 0.03 K/mm3 (0.00-0.02); NRBC Auto 0.2 /100 WBC (0.0-0.2); Platelet Count 477 K/mm3 (150-400); RDW Coefficient Variation 14.7 % (11.7-14.2); RDW Standard Deviation 43.4 fL (35.1-46.3)
[2025-03-20 06:12] LABS: Albumin, Blood 1.8 g/dL (3.4-5.0); Anion Gap 11 mmol/L (3-11); Blood Urea Nitrogen 3 mg/dL (8-24); CO2, Blood 21 mmol/L (21-32); Calcium, Blood 7.5 mg/dL (8.5-10.1); Chloride, Blood 102 mmol/L (98-108); Creatinine, Blood 0.39 mg/dL (0.40-1.00); Glucose, Blood 82 mg/dL (70-99); Phosphorus, Blood 4.2 mg/dL (2.5-4.9); Potassium, Blood 3.4 mmol/L (3.5-5.5); Sodium, Blood 131 mmol/L (136-145)
[2025-03-20 06:13] LABS: BAND PERCENT MAN 7 % (0-8); BASOPHILS ABSOLUTE MAN 0.00 K/mm3 (0.00-0.23); BASOPHILS PERCENT MAN 0 % (0-2); EOSINOPHILS ABSOLUTE MAN 0.00 K/mm3 (0.00-0.68); EOSINOPHILS PERCENT MAN 0 % (0-6); LYMPHOCYTES ABSOLUTE MAN 1.92 K/mm3 (0.84-5.20); LYMPHOCYTES PERCENT MAN 10 % (21-46); MONOCYTES ABSOLUTE MAN 1.34 K/mm3 (0.16-1.47); MONOCYTES PERCENT MAN 7 % (4-13); MYELOCYTE ABSOLUTE MAN 0.19 K/mm3 (0.00-0.00); MYELOCYTE PERCENT MAN 1 % (0-0); NEUTROPHILS ABSOLUTE MAN 15.78 K/mm3 (1.96-9.15); SEG NEUTROPHILS PERCENT MAN 75 % (41-73)
[2025-03-20 06:25] VITALS: BP 117/75
[2025-03-20 07:23] VITALS: BP 128/72
[2025-03-20] MEDS ORDERED: HYDROcodone 5-APAP 325 TAB PO PRN (08:25)
--- NOTE | 2025-03-20 09:07 | NUR ---
PT BACK FROM CT SCAN. NUCLEAR FUELS RESEARCH ENGINEER DISCONTINUED. EDUCATED PT ON PAIN MANAGEMENT PLAN. MEDICATION PER EMAR.
[2025-03-20 14:53] VITALS: BP 129/79
--- NOTE | 2025-03-20 16:45 | NUR ---
SHIFT SUMMARY POD 6 EX LAP WITH BOWEL RESECTION. PT IND WITH AMBULATION TODAY. REPORTS PAIN TOLERABLE WITH PO PAIN MEDICATION. PT STILL HAS OCCASIONAL INC VOIDS. ENCOURAGING PT TO USE BATHROOM EVEN IF IN SOME PAIN. AFEBRILE DURING SHIFT. TOLERATING FULL LIQUIDS WELL, DENIES NAUSEA.
[2025-03-20 20:17] VITALS: BP 120/75
--- NOTE | 2025-03-21 04:26 | NUR ---
SHIFT SUMMARY NO ACUTE CHANGES THIS SHIFT. DRESSING TO MIDLINE CHANGED DURING DAYSHIFT, 4CM SS SHADOWING NOTED AT BOTTOM OF DRESSING. PT WALKING HALLWAYS AND UP TO BATHROOM WITH SBA/IND, PT BOB WELL. PAIN MANAGED PER EMAR WITH PO MEDICATIONS. BOB REG DIET, DENIES N/V AFTER EATING. REPORTS PASSING FLATUS. PT HAD ONE EPISODE OF N/V AT 0345 AFTER PO MEDICATION. ENCOURAGED I.S. USE AND DEEP BREATHING EXERCISES, PT ABLE TO DEMONSTRATE. DENIES SOB, CONT BIOX IN PLACE WITH SPO2 AT 97%. IV PATENT/SL. IS CURRENTLY RESTING IN BED WITH EYES CLOSED, RESP/UNLABORED. PT HOPEFUL FOR D/C THIS MORNING. AWAITING MORNING LABS. WILL GIVE REPORT TO ONCOMING RN.
[2025-03-21 06:00] VITALS: BP 108/71
[2025-03-21 07:00] LABS: BASOPHILS ABSOLUTE AUTO 0.04 K/mm3 (0.00-0.23); BASOPHILS PERCENT AUTO 0 % (0-2); EOSINOPHILS ABSOLUTE AUTO 0.16 K/mm3 (0.00-0.68); EOSINOPHILS PERCENT AUTO 1 % (0-6); Hematocrit 28.3 % (33.0-51.0); Hemoglobin 9.3 g/dL (11.5-16.0); IMMATURE GRAN ABSOLUTE AUTO 0.61 K/mm3 (0.00-0.10); IMMATURE GRAN PERCENT AUTO 3 % (0-1); LYMPHOCYTES ABSOLUTE AUTO 0.92 K/mm3 (0.84-5.20); LYMPHOCYTES PERCENT AUTO 5 % (21-46); MONOCYTES ABSOLUTE AUTO 0.71 K/mm3 (0.16-1.47); MONOCYTES PERCENT AUTO 4 % (4-13); Mean Corpuscular HGB Conc 32.9 g/dL (31.5-36.5); Mean Corpuscular Volume 80 fL (80-100); NEUTROPHILS ABSOLUTE AUTO 15.47 K/mm3 (1.96-9.15); NEUTROPHILS PERCENT AUTO 86 % (41-73); NRBC ABSOLUTE 0.00 K/mm3 (0.00-0.02); NRBC Auto 0.0 /100 WBC (0.0-0.2); Platelet Count 525 K/mm3 (150-400); RDW Coefficient Variation 15.1 % (11.7-14.2); RDW Standard Deviation 43.9 fL (35.1-46.3)
[2025-03-21 07:15] VITALS: BP 112/67
[2025-03-21 07:25] LABS: Anion Gap 11.0 mmol/L (3-11); Blood Urea Nitrogen 5.0 mg/dL (8-24); CO2, Blood 24.0 mmol/L (21-32); Calcium, Blood 7.7 mg/dL (8.5-10.1); Chloride, Blood 103.0 mmol/L (98-108); Creatinine, Blood 0.38 mg/dL (0.40-1.00); Glucose, Blood 106.0 mg/dL (70-99); Potassium, Blood 3.5 mmol/L (3.5-5.5); Sodium, Blood 134.0 mmol/L (136-145)
[2025-03-21] MEDS ORDERED: Norco 5-325 Ta1 EACH PO (08:30)
--- NOTE | 2025-03-21 13:07 | NUR ---
DISCHARGE POD 7 EX LAP WITH BOWEL RESECTION. PT AMBULATES WELL INDEPENDENTLY. INCISION FREE FROM REDNESS, MEDIPORE CHANGED. EXTRA DRESSINGS SENT WITH PATIENT. TOLERATING DIET WELL, NO NAUSEA REPORTED. PAIN WELL CONTROLLED PER EMAR. PASSING GAS, REPORTS URGE TO HAVE A BOWEL MOVEMENT. ALL INSTRUCTIONS GONE OVER WITH PATIENT AND FAMILY. ALL BELONGINGS WITH PATIENT. PRESCRIPTIONS PICKED UP PRIOR TO DISCHARGE ALONG WITH WORK NOTE. ESCORTED OUT VIA WHEELCHAIR.
== END 2025-03-21 13:29 | disposition home or self-care (01) | DRG 957 ==
LOC: ER 20:41 → SURS 20:42 → ER 20:42 → SURS 23:22
PROVIDERS: Emergency Medicine; Surgery; ADMIT Surgery
PROC: 0DBK0ZZ Excision of Ascending Colon, Open Approach (ICD-10-PCS; 2025-03-14)
PROC: 0DQV0ZZ Repair Mesentery, Open Approach (ICD-10-PCS; 2025-03-14)
PROC: 0DBB0ZZ Excision of Ileum, Open Approach (ICD-10-PCS; principal; 2025-03-14 11:30)
DX: S36.898A Other injury of other intra-abdominal organs, initial encounter (principal); K55.011 Focal (segmental) acute (reversible) ischemia of small intestine; S27.0XXA Traumatic pneumothorax, initial encounter; S06.0XAA Concussion with loss of consciousness status unknown, initial encounter; K55.8 Other vascular disorders of intestine; S27.321A Contusion of lung, unilateral, initial encounter; V89.2XXA Person injured in unspecified motor-vehicle accident, traffic, initial encounter; S51.812A Laceration without foreign body of left forearm, initial encounter; S60.512A Abrasion of left hand, initial encounter; S70.211A Abrasion, right hip, initial encounter; R40.2362 Coma scale, best motor response, obeys commands, at arrival to emergency department; R40.2142 Coma scale, eyes open, spontaneous, at arrival to emergency department; R40.2252 Coma scale, best verbal response, oriented, at arrival to emergency department; I95.9 Hypotension, unspecified; E87.6 Hypokalemia
CPT/HCPCS: 36415; 70450; 71045; 71260; 72125; 73090; 73560-LT; 73560-RT; 73600; 74177; 80048; 80053; 80069; 80320; 81001; 83735; 84100; 84703; 85014; 85018; 85025; 86850; 86900; 86901; 88307; 93005; 93010; 94762; 96374-59; 96375; 96376; 97110; 97161; 97530; 99285-25; A6590; A9270; G0378; J1171; J1650; J1885; J2250; J2371; J2405; J2543; J2704; J2795; J3010; J7040; J7120; Q9967